=== PATIENT | female | born 1995 | race Caucasian/White ===

== ENCOUNTER 2022-11-02 07:08 | Emergency (ER) | payer BC ==
[2022-11-02] MEDS ORDERED: methylPREDNISolone Sodium Succinate 125 MG/2 ML SDV IM ONE (07:41)
[2022-11-02] MEDS ORDERED: diphenhydrAMINE 50 MG/ML SDV IM ONE (07:41)
[2022-11-02] MEDS ORDERED: Famotidine 20 MG Tab PO ONE (07:42)
== END 2022-11-02 08:20 | disposition home or self-care (01) ==
LOC: JD.ED 07:08
DX: L50.0 Allergic urticaria (principal); Z88.8 Allergy status to other drugs, medicaments and biological substances
CPT/HCPCS: 96372; 99283; A9270; J1200; J2930